=== PATIENT | female | born 1945 | race Caucasian/White ===

== ENCOUNTER 2016-12-01 14:12 | Emergency (ER) | payer MEDICARE, BC ==
[~2016-12-01] VITALS: Ht 160 cm; Wt 69.0 kg
[2016-12-01 14:23] VITALS: BP 141/71; PULSE 86; RESP 16; TEMP 97.8; O2SAT 92
--- NOTE | 2016-12-01 16:37 | PD ---
HPI Chief Complaint: Right Wrist Pain Time Seen by Provider: 16:37 Travel History International Travel<30 days: No Contact w/Intl Traveler<30days: No Traveled to known affect area: No History of Present Illness HPI 71-year-old female presents the emergency department status post trip and fall while cleaning up debris in her yard. Patient has pain and swelling to the right wrist. She denies any other injury. She denies head injury or loss of consciousness. She has no neck pain. Patient has no loss of sensation. Pain is currently an 8 out of 10. There is no open wounds. She has no known drug allergies. [facility] Social History Alcohol Use: Yes Tobacco Use: Yes Substance Use: No Allergies-Medications (Allergen,Severity, Reaction): Coded Allergies: No Known Allergies (Unverified , 12/01/16) Reported Meds & Prescriptions Reported Meds & Active Scripts Active Reported Aspirin 325 Mg Tab 325 Mg PO DAILY Levothyroxine (Levothyroxine Sodium) 88 Mcg Tab 88 Mcg PO DAILY Review of Systems Except as stated in HPI: all other systems reviewed are Neg General / Constitutional: No: Fever Eyes: No: Visual changes HENT: No: Headaches Cardiovascular: No: Chest Pain or Discomfort Respiratory: No: Shortness of Breath Gastrointestinal: No: Abdominal Pain Genitourinary: No: Dysuria Musculoskeletal: Positive: Arthralgias, Limited ROM, Pain (see history present illness.) Skin: No Rash Neurologic: No: Weakness Psychiatric: No: Depression Endocrine: No: Polydipsia Hematologic/Lymphatic: No: Easy Bruising Physical Exam Narrative GENERAL: Patient appears in no acute distress. SKIN: Warm and dry. Normal color. Normal turgor. HEAD: Atraumatic. Normocephalic. Nontender. EYES: Pupils equal and round. No scleral icterus. No injection or drainage. ENT: No nasal bleeding or discharge. Mucous membranes pink and moist. Pharynx is clear. Airway is patent NECK: Trachea midline. No bony tenderness or step-off. Range of motion is full and supple. CARDIOVASCULAR: Regular rate and rhythm. RESPIRATORY: No accessory muscle use. Clear to auscultation. Breath sounds equal bilaterally. MUSCULOSKELETAL: Extremities without clubbing, cyanosis, or edema. Patient has obvious swelling to the right wrist with limited range of motion secondary to pain. Neurovascular exam is normal distally. NEUROLOGICAL: Awake and alert. No obvious cranial nerve deficits. Motor grossly within normal limits. Five out of 5 muscle strength in the arms and legs. Normal speech. PSYCHIATRIC: Appropriate mood and affect; insight and judgment normal. Data Data Last Documented VS Vital Signs Date Time Temp Pulse Resp B/P (MAP) Pulse Ox O2 Delivery O2 Flow Rate FiO2 12/01/16 16:50 16 12/01/16 14:23 97.8 86 141/71 (94) 92 Room Air Orders Orders Wrist, Complete ([id number]) (12/01/16 16:40) Ice/Cold Pack (12/01/16 16:40) Splint Or Brace Apply/Monitor (12/01/16 17:14) Neurological Rass Scale Q30MX2,Q2HX4,Q4H (12/01/16 17:21) Fentanyl Drip (Fentanyl Drip) (12/01/16 17:30) MDM Medical Decision Making Medical Screen Exam Complete: Yes Emergency Medical Condition: Yes Differential Diagnosis Trip and fall. Fall on outstretched hand. Right wrist fracture. Right wrist sprain. Narrative Course Ice pack is applied to the injured area. X-ray of the right wrist is obtained. Wrist x-ray show distal right radius and distal right ulnar styloid fracture with minimal displacement. Patient is placed in a sugar tong splint and sling. Patient is given Lortab 5/325 one every 6 hours when necessary pain #12. Patient should use ice to this area frequently. Patient to call for follow-up with Dr. Holguin, the orthopedic on-call. Patient can return to emergency department as needed. Diagnosis Primary Impression: Fall Qualified Codes: W19.XXXA - Unspecified fall, initial encounter Additional Impression: Fracture of right wrist Qualified Codes: S62.101A - Fracture of unspecified carpal bone, right wrist, initial encounter for closed fracture Referrals: Robe Holguin MD call for appointment Patient Instructions: General Instructions, How to Use a Sling (GEN), Splint Care (ED), Suspected Fracture (ED) Additional Instructions: Wrist x-ray show distal right radius and distal right ulnar styloid fracture with minimal displacement. Patient is placed in a sugar tong splint and sling. Patient is given Lortab 5/325 one every 6 hours when necessary pain #12. Patient should use ice to this area frequently. Patient to call for follow-up with Dr. Holguin, the orthopedic on-call. Patient can return to emergency department as needed. Med/Other Pt SpecificInfo: Prescription(s) given Disposition: 01 DISCHARGE HOME Condition: Stable Bebeto Valentin Dec 01, 2016 16:37
[2016-12-01] MEDS ORDERED: ASPI325T PO (16:55)
[2016-12-01] MEDS ORDERED: LEVO88TA2 PO (16:55)
--- NOTE | 2016-12-01 17:09 | RADRPT ---
EXAM DATE/TIME: 12/01/2016 16:54 [facility] COMPARISON: No previous studies available for comparison. INDICATIONS : Fell today. MEDICAL HISTORY : Osteoporosis. Carpal tunnel syndrome. SURGICAL HISTORY : None. ENCOUNTER: Initial ACUITY: 1 day PAIN SCORE: 3/10 LOCATION: Right medial wrist FINDINGS: Slightly comminuted impacted fracture of the distal radius. Minimally displaced ulnar styloid fractur e. Remaining osseous structures appear intact. Carpal bones are grossly intact. Joint spaces are main tained. Soft tissue swelling about the wrist. CONCLUSION: 1. Slightly comminuted impacted distal radial fracture. 2. Minimally displaced ulnar styloid fracture. Jaime Iglesias MD on December 01, 2016 at 17:06 Board Certified Radiologist. This report was verified electronically.
[2016-12-01] MEDS ORDERED: fentaNYL DRIP 250 ML IV PRN (17:30)
[2016-12-01] MEDS ORDERED: HYDR-3533 PO ×2 (17:31→17:32)
== END 2016-12-01 18:00 | disposition home or self-care (01) ==
LOC: PHED 14:12 → PHEFT 18:00
DX: S62.101A Fracture of unspecified carpal bone, right wrist, initial encounter for closed fracture (principal); W19.XXXA Unspecified fall, initial encounter
CPT/HCPCS: 29125; 73110